=== PATIENT | male | born 1995 | race Two or more races ===

== ENCOUNTER 2023-02-20 13:10 | Emergency (ER) | payer OTHER ==
[~2023-02-20] VITALS: Ht 177.8 cm; Wt 106.6 kg
[2023-02-20] MEDS ORDERED: AMOX-CLAV 875-1 EAC1 PO (18:53)
[2023-02-20] MEDS ORDERED: MUPIROCIN1 G1 TOP (18:53)
== END 2023-02-20 19:00 | disposition home or self-care (01) ==
LOC: ER 13:10
DX: S61.011A Laceration without foreign body of right thumb without damage to nail, initial encounter (principal); W26.0XXA Contact with knife, initial encounter; Y93.89 Activity, other specified; Y92.018 Other place in single-family (private) house as the place of occurrence of the external cause; Y99.9 Unspecified external cause status
CPT/HCPCS: 12001; 90471; 90714; 99284; J1670